=== PATIENT | male | born 1945 | race Caucasian/White ===

== ENCOUNTER → 2017-08-12 | Outpatient (CLI) | payer OTHER ==
[~2017-08-12] MED LIST: ZESTRIL5 MG PO
== END ==
LOC: EXRD 11:38
DX: J44.1 Chronic obstructive pulmonary disease with (acute) exacerbation (principal); R91.8 Other nonspecific abnormal finding of lung field; Z95.1 Presence of aortocoronary bypass graft
CPT/HCPCS: 71020

== ENCOUNTER 2020-12-24 06:32 | Inpatient (IN) | payer OTHER ==
[~2020-12-24] VITALS: Ht 170.2 cm; Wt 62.6 kg
[~2020-12-24 06:32] MED LIST changes: +AMBIEN10 MG PO; +AMBIEN5 MG PO; +BROVANA15 MCG/2 M INH; +CARDIZEM CD180 MG PO; +COLACE 100MG C100 MG PO; +COMBIVENT0.074 GM/I INH; +CRESTOR10 MG PO; +CYCLOBENZAPRINE10 MG PO; +DIGITEK125 MCG PO; +DURAGESIC1 EAC2 TD; +ELIQUIS5 MG PO; +FEOSOL325 MG PO; +FLEXERIL 10 MG10 MG PO; +FLOMAX 0.4 MG0.4 MG PO; +FLOMAX0.4 MG PO; +GLUCOPHAGE500 MG PO; +GLUCOSE4 GM PO; +GUAIFENESIN200 MG PO; +HYDROCODON-ACE1 EAC6 PO; +ISORDIL TAB 3030 MG PO; +K-DUR TAB 10 M10 MEQ PO; +LASIX20 MG PO; +LEVAQUIN750 MG PO; +LEVOFLOXACIN500 MG PO; +LISINOPRIL-HCT1 EAC1 PO; +LOW DOSE ASPIRI81 MG PO; +MARINOL10 MG PO; +MEDROL4 MG PO; +MELATONIN3 M3 PO; +NEURONTIN 300300 MG PO; +NICODERM CQ1 EAC1 TD; +NORCO 10-325 T1 EACH PO; +NOVOLOG100 UNIT/1 SC; +NYSTATIN100000 UNI PO; +OMNICEF 300 MG300 MG PO; +OXYCODONE HCL20 MG PO; +PERCOCET 10-321 EACH PO; +PLAVIX 75 MG TA75 MG PO; +PLAVIX75 MG PO; +PREDNISONE 10 M10 MG PO; +PREDNISONE 20 M20 MG PO; +PREDNISONE10 MG PO; +PULMICORT0.5 MG/2 M INH; +SPIRIVA RESPIMAT4 GM INH; +SYMBICORT 160-1 INHA INH; +THEO-DUR 300 M300 MG PO; +THEOPHYLLINE600 MG PO; +TRELEGY ELLIPT1 EACH INH; +VIBRAMYCIN100 MG PO; +VITAMIN D31000 UNI1 PO; +XANAX1 MG PO; +XYZAL5 MG PO; +ZITHROMAX500 MG PO
[2020-12-24 07:24] LABS: HEMOGLOBIN 12.9 gm/dl (14.0-17.5); RED BLOOD COUNT 4.29 M/UL (4.20-5.50); WHITE BLOOD COUNT 15.1 K/UL (4.5-11.0)
[2020-12-24 07:49] LABS: BUN/CREATININE RATIO 24 (0-10)
[2020-12-24] MEDS ORDERED: ALENDRONATE SOD70 MG PO (17:35)
[2020-12-24] MEDS ORDERED: CRESTOR 10 MG T10 MG GT (17:37)
[2020-12-24] MEDS ORDERED: CLOPIDOGREL75 MG PO (17:38)
[2020-12-25 04:57] LABS: HEMOGLOBIN 11.7 gm/dl (14.0-17.5); RED BLOOD COUNT 3.89 M/UL (4.20-5.50); WHITE BLOOD COUNT 13.4 K/UL (4.5-11.0)
[2020-12-25 05:10] LABS: BUN/CREATININE RATIO 26 (0-10)
[2020-12-26 05:56] LABS: HEMOGLOBIN 11.9 gm/dl (14.0-17.5); RED BLOOD COUNT 3.89 M/UL (4.20-5.50)
[2020-12-26 06:20] LABS: BUN/CREATININE RATIO 38 (0-10)
[2020-12-26 06:35] LABS: WHITE BLOOD COUNT 18.6 K/UL (4.5-11.0)
--- NOTE | 2020-12-26 14:05 | NUR ---
PATIENT BACK FROM OR AND RESTING COMFORTABLY.
--- NOTE | 2020-12-26 15:59 | NUR ---
PATIENT RESPONDS WHEN SPOKEN TO OPEN EYES AND ANSWER QUESTIONS APPROPRIATELY
--- NOTE | 2020-12-26 18:05 | NUR ---
SPOKEN WITH DR. REDD DOING HIS ROUND INFORMED PATIENT HAS BEEN SLEEP SINCE HE HAS BEEN ON THE FLOOR FROM SURGERY, INFORMED OF PATIENT HEART RATE UP AND THAT PACU NURSE STATED HIS HEART RATE WAS HIGH ALSO, ANESTHESIOLOGIST AWARE. PATIENT WILL MUMBLES BUT WILL NOT OPEN EYES. REPORTED TO DR. SINGH AND SEEN PATIENT AND WAS INSTRUCTED TO MONITOR PATIENT. PATIENT WILL ANSWER WHEN ASKED HIS NAME PROPERLY.
--- NOTE | 2020-12-26 18:33 | NUR ---
REPORTED TO DR. SINGH PATIENT EPISODE OF TACHYCARDIA. DR. REDD AND DR. SINGH SPOKEN OVER THE PHONE REGARDING PATIENT.
[2020-12-26 18:39] LABS: HEMOGLOBIN 9.9 gm/dl (14.0-17.5)
--- NOTE | 2020-12-26 19:03 | NUR ---
RECEIVED CALL FROM DR. SINGH TO NOTIFY DR. INIGUEZ R/T PATIETNT HX OF AFIB, TACHYCARDIC EPISODE FROM 129-140'S. REQUEST TO ASSESS PATIENT IF BETABLOCKERS NEEDED AND REQUEST FOR ANY SUGGESTIONS. REPORTED TO DR. INIGUEZ OF THE ABOVE AND RECEIVED ORDER. INFORMED THE EVENING NURSE OF THE ABOVE WELL.
--- NOTE | 2020-12-26 20:21 | NUR ---
UPON ARRIVING FOR MY SHIFT, RECEIVED REPORT FROM ROMAN GREEN. SHE STATED THE PT HAD BEEN LETHARGIC SINCE RETURNING FROM SURGERY AT APPROXIMATELY 1400 TODAY. PT COLORING WAS ASHEN, BILATERAL UPPER AND LOWER EXTREMITIES WERE ICE COLD. HR IN THE 120S-140S. I CAME IN THE ON THE END OF THE EXCHANGE BETWEEN AND ROMAN VASQUEZ WITH THE PT. BUT I PROCEEDED WITH THE TRANSFER. DR. BRUNO WAS CONTACTED HE ORDERED AN EKG. ONCE THE EKG WAS DONE I HAD PHILOSOPHY SPECIALIST TEXT A PIC OF THE EKG TO DR. BRUNO. HE CALLED BACK AND ORDERED A NEW CARDIO CONSULT TO BE PLACED FOR THE AM AND CARDIAC SCREENS Q6HRS X3. I ALSO CONTACTED DR. SINGH THE TRANSFERRING PHYSICIAN DUE TO THE FACT THE PT HAD TRANSFER ORDERS THAT ONLY I COULD SEE. THE AND THE PHILOSOPHY SPECIALIST COULD NOT SEE THE TRANSFER ORDERS. SO I CALLED DR. SINGH BACK JUST TO VERIFY THE ORDERS. I HAD TO PLACE NEW ORDERS IN [facility] DUE TO THE FACT THE ONLY WAY I COULD SEE THE ORDERS OF WHAT UNIT THE PT WAS GOING TO WAS TO ACCEPT THE TRANSFER ORDERS. DR. SINGH CONFIRMED THE TRANSFER AND I THEN TRANSFERRED THE PT TO [facility] ROOM 6112. PT STABLE AT TIME OF TRANSFER
[2020-12-27 02:11] LABS: HEMOGLOBIN 9.4 gm/dl (14.0-17.5); RED BLOOD COUNT 3.03 M/UL (4.20-5.50); WHITE BLOOD COUNT 23.4 K/UL (4.5-11.0)
[2020-12-27 02:29] LABS: BUN/CREATININE RATIO 30 (0-10)
--- NOTE | 2020-12-27 15:33 | NUR ---
PATIENT DRESSING TO LEFT HIP SATURATED IN BLOOD. WOUND DRESSING CLEANED AND CHANGED. PATIENT TOLERATED WELL. /REBECCA GOMEZ AWARE AND HAS SEEN THE OLD DRESSING. JASON INSTRUCT TO WAIT ON CARDIOLOGY CONSULT BEFORE RX FOR ANTICOAGULANT
[2020-12-28 03:19] LABS: BUN/CREATININE RATIO 53 (0-10)
[2020-12-28 04:07] LABS: RED BLOOD COUNT 1.9 M/UL (4.20-5.50); WHITE BLOOD COUNT 13.3 K/UL (4.5-11.0)
[2020-12-28 04:08] LABS: HEMOGLOBIN 6.3 gm/dl (14.0-17.5)
[2020-12-28 17:51] LABS: HEMOGLOBIN 8.7 gm/dl (14.0-17.5)
[2020-12-29 02:30] LABS: HEMOGLOBIN 8.5 gm/dl (14.0-17.5)
[2020-12-29 02:41] LABS: RED BLOOD COUNT 2.98 M/UL (4.20-5.50); WHITE BLOOD COUNT 9.7 K/UL (4.5-11.0)
[2020-12-29 02:57] LABS: BUN/CREATININE RATIO 34 (0-10)
[2020-12-30 02:53] LABS: RED BLOOD COUNT 3.14 M/UL (4.20-5.50); WHITE BLOOD COUNT 9.7 K/UL (4.5-11.0)
[2020-12-30 03:13] LABS: BUN/CREATININE RATIO 21 (0-10)
[2020-12-31 11:37] LABS: HEMOGLOBIN 9.8 gm/dl (14.0-17.5); RED BLOOD COUNT 3.42 M/UL (4.20-5.50)
[2020-12-31 11:42] LABS: WHITE BLOOD COUNT 17.1 K/UL (4.5-11.0)
[2021-01-01 04:45] LABS: HEMOGLOBIN 9.2 gm/dl (14.0-17.5); RED BLOOD COUNT 3.18 M/UL (4.20-5.50)
[2021-01-01 04:48] LABS: WHITE BLOOD COUNT 11.4 K/UL (4.5-11.0)
[2021-01-01 04:50] LABS: BUN/CREATININE RATIO 17 (0-10)
[2021-01-02 02:36] LABS: HEMOGLOBIN 9.8 gm/dl (14.0-17.5); RED BLOOD COUNT 3.38 M/UL (4.20-5.50); WHITE BLOOD COUNT 12.8 K/UL (4.5-11.0)
[2021-01-02 03:15] LABS: BUN/CREATININE RATIO 18 (0-10)
[2021-01-02] MEDS ORDERED: ELIQUIS5 MG PO (11:39)
[2021-01-02] MEDS ORDERED: HYDROCODON-ACE1 EAC2 PO (11:41)
[2021-01-02] MEDS ORDERED: PREDNISONE 10 M10 MG PO (12:28)
[2021-01-02] MEDS ORDERED: LOPRESSOR 25 MG25 MG PO (13:51)
[2021-01-02] MEDS ORDERED: HYDROCODON-ACE1 EAC6 PO (17:16)
[2021-01-02] MEDS ORDERED: ALPRAZOLAM1 MG PO (21:25)
[2021-01-03] MEDS ORDERED: OXYCODONE HCL20 MG PO (17:18)
[2021-01-13] MEDS ORDERED: LOVENOX40 MG/0.4 SQ (17:22)
== END 2021-01-02 17:41 | disposition home or self-care (01) | DRG 521 ==
LOC: ER1 06:32 → CDU 10:29 → PROG CARE 10:29 → M/S 10:29 → PROG CARE 12:12 → M/S 12-25 12:22 → PROG CARE 12-26 20:26 → MED SURG 4 12-31 18:50
PROVIDERS: Emergency Medicine; Internal Medicine; Internal Medicine Pulmonary Disease; Nurse Practitioner Family; Orthopaedic Surgery; Physician Assistant; Physician Assistant Medical; ADMIT Hospitalist
PROC: 0SRB02A Replacement of Left Hip Joint with Metal on Polyethylene Synthetic Substitute, Uncemented, Open Approach (ICD-10-PCS; principal; 2020-12-26 08:30)
PROC: 0QP904Z Removal of Internal Fixation Device from Left Femoral Shaft, Open Approach (ICD-10-PCS; 2020-12-26 08:30)
PROC: 30233N1 Transfusion of Nonautologous Red Blood Cells into Peripheral Vein, Percutaneous Approach (ICD-10-PCS; 2020-12-28)
DX: S72.002A Fracture of unspecified part of neck of left femur, initial encounter for closed fracture (principal); G93.41 Metabolic encephalopathy; S22.32XA Fracture of one rib, left side, initial encounter for closed fracture; M87.9 Osteonecrosis, unspecified; J44.1 Chronic obstructive pulmonary disease with (acute) exacerbation; J96.11 Chronic respiratory failure with hypoxia; J96.12 Chronic respiratory failure with hypercapnia; I50.32 Chronic diastolic (congestive) heart failure; I48.0 Paroxysmal atrial fibrillation; E11.9 Type 2 diabetes mellitus without complications; I25.10 Atherosclerotic heart disease of native coronary artery without angina pectoris; Z20.822 Contact with and (suspected) exposure to COVID-19; D72.829 Elevated white blood cell count, unspecified; I11.0 Hypertensive heart disease with heart failure; E55.9 Vitamin D deficiency, unspecified; E78.5 Hyperlipidemia, unspecified; F17.210 Nicotine dependence, cigarettes, uncomplicated; G47.00 Insomnia, unspecified; K59.00 Constipation, unspecified; F41.9 Anxiety disorder, unspecified; G62.9 Polyneuropathy, unspecified; M62.838 Other muscle spasm; M81.0 Age-related osteoporosis without current pathological fracture; Z95.1 Presence of aortocoronary bypass graft; Z79.01 Long term (current) use of anticoagulants; Z79.82 Long term (current) use of aspirin; Z79.899 Other long term (current) drug therapy; Z99.81 Dependence on supplemental oxygen; Z83.3 Family history of diabetes mellitus; Z88.0 Allergy status to penicillin; Z88.8 Allergy status to other drugs, medicaments and biological substances; Z91.040 Latex allergy status; Z95.5 Presence of coronary angioplasty implant and graft; G89.4 Chronic pain syndrome
CPT/HCPCS: ECHO; 36415; 36430; 36600; 70450; 71045; 72125; 72170; 73502; 76000; 80048; 80053; 82550; 82553; 82803; 82962; 83540; 83550; 83605; 83690; 83735; 83874; 83880; 84484; 85014; 85018; 85025; 85027; 85610; 85730; 86850; 86900; 86901; 86920; 90471; 90715; 93005; 93306; 94640; 94664; 94760; 96365; 96372; 96375; 96376; 97116-GP-CQ; 97162; 97166; 97530-GP-CQ; 99285; C1776; C9113; J0171; J0690; J1100; J1170; J1644; J1956; J2704; J2795; J2920; J2930; J3010; J3370; J7030; J7050; J7120; P9016; U0002

== ENCOUNTER 2021-01-23 09:29 | Inpatient (IN) | payer OTHER ==
[~2021-01-23] VITALS: Ht 170.2 cm; Wt 62.6 kg
[~2021-01-23 09:29] MED LIST changes: +ALENDRONATE SOD70 MG PO; +ALPRAZOLAM1 MG PO; +CLOPIDOGREL75 MG PO; +CRESTOR 10 MG T10 MG GT; +HYDROCODON-ACE1 EAC2 PO; +LOPRESSOR 25 MG25 MG PO; +LOVENOX40 MG/0.4 SQ
[2021-01-23] MEDS ORDERED: OMEPRAZOLE20 MG PO (11:02)
[2021-01-23 11:40] LABS: HEMOGLOBIN 9.5 gm/dl (14.0-17.5); RED BLOOD COUNT 3.14 M/UL (4.20-5.50)
[2021-01-23 12:09] LABS: BUN/CREATININE RATIO 26 (0-10)
[2021-01-23] MEDS ORDERED: PREDNISONE10 MG PO (17:16)
[2021-01-23] MEDS ORDERED: PLAVIX75 MG PO (17:21)
[2021-01-23] MEDS ORDERED: LASIX20 MG PO (17:23)
[2021-01-23] MEDS ORDERED: IPRAT-ALBUT 0.5-3 ML INH (20:53)
[2021-01-23] MEDS ORDERED: NEURONTIN800 MG PO (21:25)
[2021-01-24 02:24] LABS: HEMOGLOBIN 9.2 gm/dl (14.0-17.5); RED BLOOD COUNT 3.1 M/UL (4.20-5.50); WHITE BLOOD COUNT 6.7 K/UL (4.5-11.0)
[2021-01-24 02:42] LABS: BUN/CREATININE RATIO 33 (0-10)
[2021-01-25 03:55] LABS: HEMOGLOBIN 8.9 gm/dl (14.0-17.5); RED BLOOD COUNT 2.93 M/UL (4.20-5.50); WHITE BLOOD COUNT 13.2 K/UL (4.5-11.0)
[2021-01-25 04:18] LABS: BUN/CREATININE RATIO 30 (0-10)
[2021-01-26 06:36] LABS: HEMOGLOBIN 8.9 gm/dl (14.0-17.5); RED BLOOD COUNT 2.93 M/UL (4.20-5.50); WHITE BLOOD COUNT 11.3 K/UL (4.5-11.0)
[2021-01-26 07:09] LABS: BUN/CREATININE RATIO 34 (0-10)
[2021-01-26] MEDS ORDERED: SPIRIVA HANDIH18 MCG INH (11:13)
[2021-01-26] MEDS ORDERED: XARELTO20 MG PO (11:13)
[2021-01-26] MEDS ORDERED: DOXYCYCLINE HY100 M2 PO (11:13)
[2021-01-26] MEDS ORDERED: SYMBICORT 16010.2 GM INH (11:13)
[2021-01-26] MEDS ORDERED: DALIRESP 500500 MCG PO (11:13)
[2021-01-26] MEDS ORDERED: XARELTO15 MG PO (11:13)
[2021-01-26] MEDS ORDERED: HUMALOG 10100 UNITS/ SC ×2 (11:13)
== END 2021-01-26 16:46 | disposition home or self-care (01) | DRG 299 ==
LOC: ER1 09:29 → CDU 15:19 → PROG CARE 15:19 → MED SURG 4 01-25 14:23
PROVIDERS: Emergency Medicine; Internal Medicine; Physician Assistant; ADMIT Internal Medicine
PROC: 5A09457 Assistance with Respiratory Ventilation, 24-96 Consecutive Hours, Continuous Positive Airway Pressure (ICD-10-PCS; principal; 2021-01-23)
DX: I82.412 Acute embolism and thrombosis of left femoral vein (principal); J96.22 Acute and chronic respiratory failure with hypercapnia; J96.21 Acute and chronic respiratory failure with hypoxia; J44.1 Chronic obstructive pulmonary disease with (acute) exacerbation; S32.019A Unspecified fracture of first lumbar vertebra, initial encounter for closed fracture; I50.32 Chronic diastolic (congestive) heart failure; E11.9 Type 2 diabetes mellitus without complications; I10 Essential (primary) hypertension; F17.210 Nicotine dependence, cigarettes, uncomplicated; I48.0 Paroxysmal atrial fibrillation; I25.10 Atherosclerotic heart disease of native coronary artery without angina pectoris; E78.5 Hyperlipidemia, unspecified; Z96.642 Presence of left artificial hip joint; Z66 Do not resuscitate; I11.0 Hypertensive heart disease with heart failure; D64.9 Anemia, unspecified; Z88.0 Allergy status to penicillin; Z99.81 Dependence on supplemental oxygen; Z95.1 Presence of aortocoronary bypass graft; Z98.890 Other specified postprocedural states; Z91.14 Patient's other noncompliance with medication regimen; Z79.4 Long term (current) use of insulin
CPT/HCPCS: 0240U; 36415; 36600; 71045; 73502; 80048; 80053; 82550; 82553; 82803; 82962; 83735; 83874; 83880; 84484; 85025; 85027; 85379; 93971; 94640; 94660; 94664; 94760; 96365; 96372; 96375; 97110; 97161; 97166; 97530; 99285; J1650; J1956; J2930; Q9967

== ENCOUNTER 2021-04-09 03:10 | Inpatient (IN) | payer MEDICARE, OTHER ==
[~2021-04-09] VITALS: Ht 170.2 cm; Wt 59.4 kg
[~2021-04-09 03:10] MED LIST changes: +DALIRESP 500500 MCG PO; +DOXYCYCLINE HY100 M2 PO; +HUMALOG 10100 UNITS/ SC; +IPRAT-ALBUT 0.5-3 ML INH; +NEURONTIN800 MG PO; +OMEPRAZOLE20 MG PO; +SPIRIVA HANDIH18 MCG INH; +SYMBICORT 16010.2 GM INH; +XARELTO15 MG PO; +XARELTO20 MG PO
[2021-04-09 04:01] LABS: HEMOGLOBIN 12.5 gm/dl (14.0-17.5); RED BLOOD COUNT 4.08 M/UL (4.20-5.50); WHITE BLOOD COUNT 12.8 K/UL (4.5-11.0)
[2021-04-09 04:49] LABS: BUN/CREATININE RATIO 34 (0-10)
[2021-04-10 04:42] LABS: RED BLOOD COUNT 4.09 M/UL (4.20-5.50); WHITE BLOOD COUNT 11.4 K/UL (4.5-11.0)
[2021-04-10 04:47] LABS: BUN/CREATININE RATIO 45 (0-10)
[2021-04-10 15:19] LABS: BUN/CREATININE RATIO 59 (0-10)
[2021-04-12 16:15] LABS: ORGANISM ID Not indicated. (.); SPECIMEN SOURCE Urine (.); STREPTOCOCCUS PNEUMONIAE AG Negative (Negative)
== END 2021-04-10 19:04 | disposition home or self-care (01) | DRG 189 ==
LOC: ER1 03:10 → CDU 09:13 → PROG CARE 13:00
PROVIDERS: Internal Medicine Pulmonary Disease; Student in an Organized Health Care Education/Training Program; ADMIT Internal Medicine Infectious Disease
DX: J96.21 Acute and chronic respiratory failure with hypoxia (principal); G92 Toxic encephalopathy; M48.56XA Collapsed vertebra, not elsewhere classified, lumbar region, initial encounter for fracture; J44.1 Chronic obstructive pulmonary disease with (acute) exacerbation; I50.32 Chronic diastolic (congestive) heart failure; E87.5 Hyperkalemia; Z20.822 Contact with and (suspected) exposure to COVID-19; I48.0 Paroxysmal atrial fibrillation; Z66 Do not resuscitate; I11.0 Hypertensive heart disease with heart failure; J40 Bronchitis, not specified as acute or chronic; E11.9 Type 2 diabetes mellitus without complications; I25.10 Atherosclerotic heart disease of native coronary artery without angina pectoris; E78.5 Hyperlipidemia, unspecified; Z96.642 Presence of left artificial hip joint; Z88.0 Allergy status to penicillin; Z95.1 Presence of aortocoronary bypass graft; Z91.040 Latex allergy status
CPT/HCPCS: 0240U; 36415; 36600; 70450; 71045; 80048; 80053; 81001; 82550; 82553; 82803; 82962; 83605; 83690; 83735; 83874; 83880; 84100; 84484; 85025; 85610; 85730; 86140; 87278; 87899; 93005; 94640; 94660; 94664; 94760; 96374; 99285; J1956; J2920; J2930; J7050; Q9967

== ENCOUNTER 2021-04-11 13:32 | Inpatient (IN) | payer MEDICARE ==
[~2021-04-11] VITALS: Ht 170.2 cm; Wt 56.2 kg
[2021-04-11 13:53] LABS: RED BLOOD COUNT 4.02 M/UL (4.20-5.50); WHITE BLOOD COUNT 12.7 K/UL (4.5-11.0)
[2021-04-11 14:18] LABS: BUN/CREATININE RATIO 71 (0-10)
--- NOTE | 2021-04-11 21:50 | NUR ---
[id number]. NOTIFIED DR LINDSAY. ADMINISTERED 5 UNITS ORDERED. NO FURTHER ORDERS. WILL CONTINUE TO MONITOR.
[2021-04-12 06:35] LABS: HEMOGLOBIN 12.8 gm/dl (14.0-17.5); RED BLOOD COUNT 4.35 M/UL (4.20-5.50); WHITE BLOOD COUNT 11.9 K/UL (4.5-11.0)
[2021-04-12 07:11] LABS: BUN/CREATININE RATIO 69 (0-10)
[2021-04-13 05:08] LABS: HEMOGLOBIN 12.6 gm/dl (14.0-17.5); RED BLOOD COUNT 4.32 M/UL (4.20-5.50); WHITE BLOOD COUNT 10.6 K/UL (4.5-11.0)
[2021-04-13 05:33] LABS: BUN/CREATININE RATIO 40 (0-10)
--- NOTE | 2021-04-13 17:51 | NUR ---
PATIENT REFUSED BED ALARM. HE SAID THAT HE WOULD CALL OUT FOR HELP WHEN HE NEEDED IT.
[2021-04-17] MEDS ORDERED: ALPRAZOLAM1 MG PO (16:33)
[2021-04-17] MEDS ORDERED: HYDROCODON-ACE1 EAC6 PO (16:33)
[2021-04-17] MEDS ORDERED: OXYCODONE HCL20 MG PO (16:33)
--- NOTE | 2021-04-21 02:35 | NUR ---
REPORT GIVEN TO NIVIA VASQUEZ
--- NOTE | 2021-04-21 16:25 | NUR ---
NOTIFIED DR. WILKES OF PATIENT'S COMPLAINTS OF CHEST PAIN.
[2021-04-22 03:31] LABS: BUN/CREATININE RATIO 25 (0-10)
[2021-05-01 06:26] LABS: BUN/CREATININE RATIO 31 (0-10)
[2021-05-03] MEDS ORDERED: FUROSEMIDE20 MG PO (09:44)
== END 2021-05-03 15:30 | DRG 189 ==
LOC: ER1 13:32 → CDU 16:57 → MED SURG 4 16:57 → M/S 18:47 → MED SURG 4 04-12 22:41
PROVIDERS: Emergency Medicine; Internal Medicine; Physician Assistant Medical; ADMIT Internal Medicine
DX: J96.21 Acute and chronic respiratory failure with hypoxia (principal); R65.11 Systemic inflammatory response syndrome (SIRS) of non-infectious origin with acute organ dysfunction; J44.1 Chronic obstructive pulmonary disease with (acute) exacerbation; I50.32 Chronic diastolic (congestive) heart failure; G89.4 Chronic pain syndrome; E11.9 Type 2 diabetes mellitus without complications; Z20.822 Contact with and (suspected) exposure to COVID-19; I11.0 Hypertensive heart disease with heart failure; J96.22 Acute and chronic respiratory failure with hypercapnia; Z96.642 Presence of left artificial hip joint; F41.9 Anxiety disorder, unspecified; R00.0 Tachycardia, unspecified; I48.0 Paroxysmal atrial fibrillation; G47.00 Insomnia, unspecified; F32.9 Major depressive disorder, single episode, unspecified; I25.10 Atherosclerotic heart disease of native coronary artery without angina pectoris; Z98.61 Coronary angioplasty status; Z95.1 Presence of aortocoronary bypass graft; Z66 Do not resuscitate; F17.210 Nicotine dependence, cigarettes, uncomplicated; Z79.899 Other long term (current) drug therapy; Z79.4 Long term (current) use of insulin; Z79.01 Long term (current) use of anticoagulants; Z79.82 Long term (current) use of aspirin
CPT/HCPCS: 0240U; 36415; 36600; 71045; 80048; 80053; 81001; 82550; 82553; 82803; 82962; 83605; 83690; 83735; 83880; 84484; 85025; 85027; 85379; 87040; 93005; 94640; 94660; 94664; 94760; 97110; 97116; 97116-GP-CQ; 97161; 97166; 97530; 99285; J2060; J2270; J2920; J2930; U0002

== ENCOUNTER 2021-06-03 19:57 | Inpatient (IN) | payer MEDICARE ==
[~2021-06-03] VITALS: Ht 170.2 cm; Wt 65.4 kg
[~2021-06-03 19:57] MED LIST changes: +FUROSEMIDE20 MG PO; +NEURONTIN400 MG PO; -NEURONTIN800 MG PO
[2021-06-03 20:35] LABS: HEMOGLOBIN 12.4 gm/dl (14.0-17.5); RED BLOOD COUNT 4.3 M/UL (4.20-5.50); WHITE BLOOD COUNT 14.4 K/UL (4.5-11.0)
[2021-06-03 21:08] LABS: BUN/CREATININE RATIO 21 (0-10)
[2021-06-04] MEDS ORDERED: TRESIBA 200 UNIT/ML SC (10:54)
[2021-06-04] MEDS ORDERED: HYDROCODON-ACE1 EAC6 PO (12:38)
[2021-06-04] MEDS ORDERED: ALPRAZOLAM1 MG PO (12:40)
[2021-06-04] MEDS ORDERED: OXYCODONE HCL20 MG PO (12:40)
[2021-06-04] MEDS ORDERED: POTASSIUM CHLO10 MEQ PO (12:45)
[2021-06-04] MEDS ORDERED: ZOLPIDEM TARTRA10 MG PO (12:47)
[2021-06-04] MEDS ORDERED: OMEPRAZOLE20 M1 PO (12:49)
[2021-06-04] MEDS ORDERED: PREDNISONE10 MG PO (12:49)
[2021-06-04] MEDS ORDERED: DOCUSATE SODIU100 MG PO (12:50)
[2021-06-05 03:44] LABS: HEMOGLOBIN 11.1 gm/dl (14.0-17.5); RED BLOOD COUNT 3.59 M/UL (4.20-5.50); WHITE BLOOD COUNT 16.1 K/UL (4.5-11.0)
[2021-06-05 04:03] LABS: BUN/CREATININE RATIO 37 (0-10)
[2021-06-06 07:36] LABS: BUN/CREATININE RATIO 35 (0-10)
[2021-06-06] MEDS ORDERED: BUDESONIDE0.5 MG/2 M NEB (14:05)
[2021-06-06] MEDS ORDERED: DOXYCYCLINE HY100 MG PO (14:05)
[2021-06-06] MEDS ORDERED: PREDNISONE 10 M10 MG PO (14:05)
[2021-06-06] MEDS ORDERED: HUMIBID LA TAB600 MG PO (14:05)
== END 2021-06-06 17:35 | DRG 871 ==
LOC: ER1 19:57 → CDU 21:15 → MED SURG 4 21:15 → CCU 21:15 → MED SURG 4 06-04 21:07
PROVIDERS: Internal Medicine; Internal Medicine Pulmonary Disease; Preventive Medicine Occupational Medicine; ADMIT Internal Medicine
DX: A41.9 Sepsis, unspecified organism (principal); J96.21 Acute and chronic respiratory failure with hypoxia; Z51.5 Encounter for palliative care; Z20.822 Contact with and (suspected) exposure to COVID-19; J96.22 Acute and chronic respiratory failure with hypercapnia; J18.9 Pneumonia, unspecified organism; G93.41 Metabolic encephalopathy; E43 Unspecified severe protein-calorie malnutrition; J44.1 Chronic obstructive pulmonary disease with (acute) exacerbation; J44.0 Chronic obstructive pulmonary disease with (acute) lower respiratory infection; I50.32 Chronic diastolic (congestive) heart failure; F17.210 Nicotine dependence, cigarettes, uncomplicated; E78.5 Hyperlipidemia, unspecified; G89.4 Chronic pain syndrome; I11.0 Hypertensive heart disease with heart failure; N40.0 Benign prostatic hyperplasia without lower urinary tract symptoms; I25.10 Atherosclerotic heart disease of native coronary artery without angina pectoris; D63.8 Anemia in other chronic diseases classified elsewhere; E11.9 Type 2 diabetes mellitus without complications; Z79.01 Long term (current) use of anticoagulants; I48.0 Paroxysmal atrial fibrillation; Z95.1 Presence of aortocoronary bypass graft; Z79.82 Long term (current) use of aspirin; Z79.899 Other long term (current) drug therapy; Z91.14 Patient's other noncompliance with medication regimen; Z88.0 Allergy status to penicillin; Z88.8 Allergy status to other drugs, medicaments and biological substances; Z91.040 Latex allergy status; Z68.22 Body mass index [BMI] 22.0-22.9, adult
CPT/HCPCS: 36415; 36600; 71045; 80048; 80053; 80307; 81001; 82140; 82550; 82553; 82803; 82962; 83036; 83605; 83690; 83735; 83874; 83880; 84100; 84439; 84443; 84484; 85025; 85652; 86140; 87040; 87086; 93005; 94640; 94660; 94664; 94760; 99285; C9113; G0480; J0696; J2185; J2920; J2930; J7030; U0002

== ENCOUNTER 2021-06-08 20:40 | Emergency (ER) | payer MEDICARE ==
[~2021-06-08 20:40] MED LIST changes: +BUDESONIDE0.5 MG/2 M NEB; +DOCUSATE SODIU100 MG PO; +DOXYCYCLINE HY100 MG PO; +HUMIBID LA TAB600 MG PO; +OMEPRAZOLE20 M1 PO; +POTASSIUM CHLO10 MEQ PO; +TRESIBA 200 UNIT/ML SC; +ZOLPIDEM TARTRA10 MG PO
[2021-06-08 21:33] LABS: HEMOGLOBIN 12.7 gm/dl (14.0-17.5); RED BLOOD COUNT 4.27 M/UL (4.20-5.50); WHITE BLOOD COUNT 9.5 K/UL (4.5-11.0)
[2021-06-08 21:52] LABS: BUN/CREATININE RATIO 28 (0-10)
[2021-06-09] MEDS ORDERED: VIBRAMYCIN 100100 MG PO (00:43)
[2021-06-09] MEDS ORDERED: MEDROL DOSEPAK 24 MG PO (00:43)
== END 2021-06-09 01:58 | disposition home or self-care (01) ==
LOC: ER1 20:40
PROVIDERS: Physician Assistant
DX: J44.1 Chronic obstructive pulmonary disease with (acute) exacerbation (principal); E11.9 Type 2 diabetes mellitus without complications; I10 Essential (primary) hypertension; F17.210 Nicotine dependence, cigarettes, uncomplicated; Z20.822 Contact with and (suspected) exposure to COVID-19
CPT/HCPCS: 0240U; 71045; 80053; 82550; 82553; 82803; 83874; 83880; 84484; 85025; 93005; 94760; 99285

== ENCOUNTER 2021-06-12 20:24 | Emergency (ER) | payer MEDICARE ==
[~2021-06-12] VITALS: Ht 170.2 cm; Wt 59.0 kg
[~2021-06-12 20:24] MED LIST changes: +MEDROL DOSEPAK 24 MG PO; +VIBRAMYCIN 100100 MG PO
[2021-06-12 22:02] LABS: HEMOGLOBIN 12.8 gm/dl (14.0-17.5); RED BLOOD COUNT 4.22 M/UL (4.20-5.50); WHITE BLOOD COUNT 13.2 K/UL (4.5-11.0)
[2021-06-12 22:16] LABS: BUN/CREATININE RATIO 20 (0-10)
[2021-06-13] MEDS ORDERED: VENTOLIN HFA 66.7 GM INH ×2 (10:46→14:25)
[2021-06-13] MEDS ORDERED: FOSAMAX70 MG PO (11:16)
[2021-06-13] MEDS ORDERED: LOPRESSOR 25 MG25 MG PO ×2 (11:16→14:25)
[2021-06-13] MEDS ORDERED: NITROGLYCERIN0.4 MG SL ×2 (12:44→14:25)
[2021-06-13] MEDS ORDERED: LASIX20 MG PO ×2 (12:46→14:25)
[2021-06-13] MEDS ORDERED: CRESTOR 10 MG T10 MG PO ×2 (12:48→14:25)
[2021-06-13] MEDS ORDERED: ELIQUIS5 MG PO ×2 (12:48→14:25)
[2021-06-13] MEDS ORDERED: GLUCOPHAGE 500500 MG PO ×2 (12:50→14:25)
[2021-06-13] MEDS ORDERED: LOW DOSE ASPIRI81 MG PO (14:25)
[2021-06-13] MEDS ORDERED: OMEPRAZOLE20 M1 PO (14:25)
[2021-06-13] MEDS ORDERED: DOCUSATE SODIU100 MG PO (14:25)
[2021-06-13] MEDS ORDERED: IPRAT-ALBUT 0.5-3 ML INH ×2 (14:25→18:42)
[2021-06-13] MEDS ORDERED: TRESIBA 200 UNIT/ML SC (14:25)
[2021-06-13] MEDS ORDERED: FLOMAX 0.4 MG0.4 MG PO (14:25)
== END 2021-06-13 17:42 | disposition home or self-care (01) ==
LOC: ER1 20:24 → CDU 23:19 → ER1 23:19 → CDU 23:19 → ER1 06-13 17:42
PROVIDERS: Physician Assistant
DX: R07.89 Other chest pain (principal); J44.9 Chronic obstructive pulmonary disease, unspecified; Z95.1 Presence of aortocoronary bypass graft; Z95.5 Presence of coronary angioplasty implant and graft; J96.11 Chronic respiratory failure with hypoxia; E78.5 Hyperlipidemia, unspecified; E44.0 Moderate protein-calorie malnutrition; I48.0 Paroxysmal atrial fibrillation; E11.9 Type 2 diabetes mellitus without complications; Z66 Do not resuscitate; F41.9 Anxiety disorder, unspecified; I11.0 Hypertensive heart disease with heart failure; Z88.0 Allergy status to penicillin; F17.210 Nicotine dependence, cigarettes, uncomplicated; I25.10 Atherosclerotic heart disease of native coronary artery without angina pectoris; I50.33 Acute on chronic diastolic (congestive) heart failure; Z20.822 Contact with and (suspected) exposure to COVID-19; R94.31 Abnormal electrocardiogram [ECG] [EKG]; I25.2 Old myocardial infarction
CPT/HCPCS: 71045; 80053; 82550; 82553; 82962; 83874; 83880; 84484; 85025; 93005; 94640; 94664; 99285; U0002

== ENCOUNTER 2021-06-21 10:09 | Emergency (ER) | payer MEDICARE ==
[~2021-06-21 10:09] MED LIST changes: +CRESTOR 10 MG T10 MG PO; +FOSAMAX70 MG PO; +GLUCOPHAGE 500500 MG PO; +NITROGLYCERIN0.4 MG SL; +VENTOLIN HFA 66.7 GM INH
[2021-06-21 10:52] LABS: HEMOGLOBIN 12.5 gm/dl (14.0-17.5); RED BLOOD COUNT 4.2 M/UL (4.20-5.50)
[2021-06-21 11:50] LABS: BUN/CREATININE RATIO 28 (0-10)
== END 2021-06-21 15:45 | disposition home or self-care (01) ==
LOC: ER1 10:09
PROVIDERS: Emergency Medicine
DX: J44.1 Chronic obstructive pulmonary disease with (acute) exacerbation (principal); R06.89 Other abnormalities of breathing; Z20.822 Contact with and (suspected) exposure to COVID-19
CPT/HCPCS: 0240U; 36600; 71045; 80053; 82550; 82553; 82803; 83874; 83880; 84484; 85025; 93005; 94664; 99285

== ENCOUNTER 2021-07-02 20:08 | Emergency (ER) | payer MEDICARE ==
[2021-07-02 20:42] LABS: HEMOGLOBIN 12.4 gm/dl (14.0-17.5); RED BLOOD COUNT 4.27 M/UL (4.20-5.50); WHITE BLOOD COUNT 11.8 K/UL (4.5-11.0)
[2021-07-02 21:11] LABS: BUN/CREATININE RATIO 22 (0-10)
[2021-07-03] MEDS ORDERED: VIBRAMYCIN 100100 MG PO (00:37)
[2021-07-03] MEDS ORDERED: PREDNISONE50 MG PO (00:37)
== END 2021-07-03 00:51 | disposition home or self-care (01) ==
LOC: ER1 20:08
PROVIDERS: Emergency Medicine
DX: J44.1 Chronic obstructive pulmonary disease with (acute) exacerbation (principal); I25.10 Atherosclerotic heart disease of native coronary artery without angina pectoris; E11.9 Type 2 diabetes mellitus without complications; Z20.822 Contact with and (suspected) exposure to COVID-19; Z95.1 Presence of aortocoronary bypass graft; F17.210 Nicotine dependence, cigarettes, uncomplicated; Z88.0 Allergy status to penicillin; Z88.1 Allergy status to other antibiotic agents
CPT/HCPCS: 36600; 71045; 80053; 81001; 82550; 82553; 82803; 83605; 83690; 83735; 83874; 83880; 84100; 84439; 84443; 84484; 85025; 85379; 85610; 85730; 87040; 93005; 94664; 96374; 96375; 99285; J0696; J2930; U0002

== ENCOUNTER 2021-07-06 15:45 | Emergency (ER) | payer MEDICARE ==
[~2021-07-06 15:45] MED LIST changes: +PREDNISONE50 MG PO
[2021-07-06 16:46] LABS: HEMOGLOBIN 13.3 gm/dl (14.0-17.5); RED BLOOD COUNT 4.39 M/UL (4.20-5.50); WHITE BLOOD COUNT 8.7 K/UL (4.5-11.0)
[2021-07-06 17:19] LABS: BUN/CREATININE RATIO 21 (0-10)
[2021-07-06] MEDS ORDERED: ALBUTEROL2.5 MG/3 M INH (22:10)
[2021-07-06] MEDS ORDERED: PREDNISONE 50 M50 MG PO (22:10)
== END 2021-07-06 23:30 | disposition home or self-care (01) ==
LOC: ER1 15:45
PROVIDERS: Nurse Practitioner
DX: J44.1 Chronic obstructive pulmonary disease with (acute) exacerbation (principal); I10 Essential (primary) hypertension; E11.9 Type 2 diabetes mellitus without complications; F17.210 Nicotine dependence, cigarettes, uncomplicated; Z95.1 Presence of aortocoronary bypass graft
CPT/HCPCS: 71045; 80053; 82550; 82553; 82800; 83735; 83880; 84484; 85025; 87040; 94640; 96374; 99285; J2930

== ENCOUNTER 2021-07-23 19:42 | Emergency (ER) | payer MEDICARE ==
[~2021-07-23 19:42] MED LIST changes: +ALBUTEROL2.5 MG/3 M INH; -NEURONTIN400 MG PO; +NEURONTIN800 MG PO; +PREDNISONE 50 M50 MG PO
[2021-07-23 22:14] LABS: HEMOGLOBIN 11.2 gm/dl (14.0-17.5); RED BLOOD COUNT 3.8 M/UL (4.20-5.50); WHITE BLOOD COUNT 9.3 K/UL (4.5-11.0)
[2021-07-23 22:53] LABS: BUN/CREATININE RATIO 19 (0-10)
[2021-07-24] MEDS ORDERED: PREDNISONE 10 M10 MG PO (01:49)
== END 2021-07-24 04:52 | disposition home or self-care (01) ==
LOC: ER1 19:42
PROVIDERS: Physician Assistant
DX: J44.9 Chronic obstructive pulmonary disease, unspecified (principal); E11.9 Type 2 diabetes mellitus without complications; I48.91 Unspecified atrial fibrillation; I11.0 Hypertensive heart disease with heart failure; I50.9 Heart failure, unspecified; E78.5 Hyperlipidemia, unspecified; I10 Essential (primary) hypertension; Z95.1 Presence of aortocoronary bypass graft; F17.200 Nicotine dependence, unspecified, uncomplicated; Z91.040 Latex allergy status; Z88.0 Allergy status to penicillin; Z20.822 Contact with and (suspected) exposure to COVID-19
CPT/HCPCS: 36600; 71045; 80053; 82550; 82553; 82803; 83874; 84484; 85025; 93005; 94640; 94664; 94760; 96374; 99285; J2930; U0002

== ENCOUNTER 2021-08-17 18:15 | Observation (INO) | payer MEDICARE ==
[~2021-08-17] VITALS: Ht 170.2 cm; Wt 60.3 kg
[~2021-08-17 18:15] MED LIST changes: +NEURONTIN400 MG PO; -NEURONTIN800 MG PO
[2021-08-17 19:42] LABS: BUN/CREATININE RATIO 25 (0-10)
[2021-08-17 19:57] LABS: HEMOGLOBIN 11.9 gm/dl (14.0-17.5); RED BLOOD COUNT 4.11 M/UL (4.20-5.50); WHITE BLOOD COUNT 8.5 K/UL (4.5-11.0)
[2021-08-18] MEDS ORDERED: ELIQUIS5 MG PO (12:40)
[2021-08-19 05:52] LABS: HEMOGLOBIN 10.5 gm/dl (14.0-17.5); WHITE BLOOD COUNT 7.5 K/UL (4.5-11.0)
[2021-08-19 05:53] LABS: RED BLOOD COUNT 3.58 M/UL (4.20-5.50)
[2021-08-19 06:23] LABS: BUN/CREATININE RATIO 32 (0-10)
[2021-08-20 06:51] LABS: HEMOGLOBIN 10.5 gm/dl (14.0-17.5); RED BLOOD COUNT 3.59 M/UL (4.20-5.50); WHITE BLOOD COUNT 7.1 K/UL (4.5-11.0)
[2021-08-20 07:19] LABS: BUN/CREATININE RATIO 28 (0-10)
[2021-08-20] MEDS ORDERED: PREDNISONE10 MG PO (12:14)
[2021-08-20] MEDS ORDERED: LEVOFLOXACIN500 MG PO (12:14)
== END 2021-08-20 17:00 | disposition home or self-care (01) ==
LOC: ER1 18:15 → CDU 21:59 → M/S 08-18 16:44
PROVIDERS: Internal Medicine; Physician Assistant; ADMIT Internal Medicine
DX: R07.2 Precordial pain (principal); U07.1 COVID-19; J43.9 Emphysema, unspecified; J96.21 Acute and chronic respiratory failure with hypoxia; I48.0 Paroxysmal atrial fibrillation; I25.10 Atherosclerotic heart disease of native coronary artery without angina pectoris; E11.40 Type 2 diabetes mellitus with diabetic neuropathy, unspecified; I11.0 Hypertensive heart disease with heart failure; I50.32 Chronic diastolic (congestive) heart failure; E78.5 Hyperlipidemia, unspecified; F41.9 Anxiety disorder, unspecified; E44.0 Moderate protein-calorie malnutrition; M19.90 Unspecified osteoarthritis, unspecified site; F17.210 Nicotine dependence, cigarettes, uncomplicated; Z99.81 Dependence on supplemental oxygen; Z66 Do not resuscitate; Z95.5 Presence of coronary angioplasty implant and graft; Z88.0 Allergy status to penicillin; Z91.040 Latex allergy status; Z79.01 Long term (current) use of anticoagulants; Z79.4 Long term (current) use of insulin; Z79.82 Long term (current) use of aspirin; Z79.899 Other long term (current) drug therapy
CPT/HCPCS: 36415; 71045; 80048; 80053; 82550; 82553; 82962; 83036; 83874; 83880; 84484; 85025; 85379; 85610; 85730; 93005; 94640; 94664; 94760; G0378; J1100; J1956; J2270; J2405; U0002

== ENCOUNTER 2021-09-08 16:51 | Inpatient (IN) | payer MEDICARE ==
[~2021-09-08] VITALS: Ht 170.2 cm; Wt 59.0 kg
[2021-09-08 17:36] LABS: HEMOGLOBIN 10.9 gm/dl (14.0-17.5); RED BLOOD COUNT 3.62 M/UL (4.20-5.50); WHITE BLOOD COUNT 9.2 K/UL (4.5-11.0)
[2021-09-08 17:53] LABS: BUN/CREATININE RATIO 18 (0-10)
[2021-09-09] MEDS ORDERED: PLAVIX75 MG PO (07:55)
[2021-09-09] MEDS ORDERED: HYDROCODON-ACE1 EAC6 PO (07:56)
[2021-09-09] MEDS ORDERED: ALPRAZOLAM1 MG PO (07:56)
[2021-09-09] MEDS ORDERED: LEVOCETIRIZINE D5 MG PO (08:44)
[2021-09-09] MEDS ORDERED: DOCUSATE SODIU100 MG PO (08:45)
[2021-09-09] MEDS ORDERED: IPRAT-ALBUT 0.5-3 ML INH (08:45)
[2021-09-09] MEDS ORDERED: FUROSEMIDE20 MG PO (08:51)
[2021-09-09] MEDS ORDERED: K-DUR TAB 10 M10 MEQ PO (08:52)
[2021-09-09] MEDS ORDERED: TRESIBA FL100 UNIT/1 SQ (08:53)
[2021-09-09] MEDS ORDERED: NOVOLOG 10100 UNITS/ SQ (08:55)
[2021-09-09] MEDS ORDERED: OMEPRAZOLE20 M1 PO (11:04)
[2021-09-09] MEDS ORDERED: LOPRESSOR 25 MG25 MG PO (11:05)
[2021-09-10 03:53] LABS: HEMOGLOBIN 9.8 gm/dl (14.0-17.5); RED BLOOD COUNT 3.33 M/UL (4.20-5.50)
[2021-09-10 04:40] LABS: BUN/CREATININE RATIO 36 (0-10)
[2021-09-12 12:33] LABS: HEMOGLOBIN 11.7 gm/dl (14.0-17.5)
[2021-09-12 12:48] LABS: RED BLOOD COUNT 3.91 M/UL (4.20-5.50); WHITE BLOOD COUNT 7.8 K/UL (4.5-11.0)
[2021-09-12 13:13] LABS: BUN/CREATININE RATIO 21 (0-10)
[2021-09-12] MEDS ORDERED: BROVANA15 MCG/2 M NEB (14:30)
[2021-09-12] MEDS ORDERED: LOPRESSOR 25 MG25 MG PO (14:30)
[2021-09-12] MEDS ORDERED: AZITHROMYCIN250 MG PO (14:30)
[2021-09-12] MEDS ORDERED: PROTONIX 40 MG40 M1 PO (14:30)
[2021-09-12] MEDS ORDERED: NICOTINE PATCH1 EAC2 TOP (14:30)
[2021-09-13 02:56] LABS: HEMOGLOBIN 10.3 gm/dl (14.0-17.5); WHITE BLOOD COUNT 7.5 K/UL (4.5-11.0)
[2021-09-13 03:03] LABS: RED BLOOD COUNT 3.46 M/UL (4.20-5.50)
[2021-09-13 03:48] LABS: BUN/CREATININE RATIO 23 (0-10)
[2021-09-14 06:40] LABS: HEMOGLOBIN 9.9 gm/dl (14.0-17.5); RED BLOOD COUNT 3.33 M/UL (4.20-5.50)
[2021-09-14 06:45] LABS: WHITE BLOOD COUNT 9.4 K/UL (4.5-11.0)
[2021-09-14 07:01] LABS: BUN/CREATININE RATIO 29 (0-10)
== END 2021-09-14 19:35 | disposition home health service (06) | DRG 189 ==
LOC: ER1 16:51 → CDU 20:55 → PROG CARE 20:55
PROVIDERS: Internal Medicine; Internal Medicine Infectious Disease; Preventive Medicine Occupational Medicine; ADMIT Internal Medicine
PROC: 5A09457 Assistance with Respiratory Ventilation, 24-96 Consecutive Hours, Continuous Positive Airway Pressure (ICD-10-PCS; principal; 2021-09-08)
DX: J96.21 Acute and chronic respiratory failure with hypoxia (principal); E43 Unspecified severe protein-calorie malnutrition; J44.1 Chronic obstructive pulmonary disease with (acute) exacerbation; I50.32 Chronic diastolic (congestive) heart failure; Z66 Do not resuscitate; Z20.822 Contact with and (suspected) exposure to COVID-19; I11.0 Hypertensive heart disease with heart failure; J96.22 Acute and chronic respiratory failure with hypercapnia; F17.210 Nicotine dependence, cigarettes, uncomplicated; I25.10 Atherosclerotic heart disease of native coronary artery without angina pectoris; N40.0 Benign prostatic hyperplasia without lower urinary tract symptoms; E11.65 Type 2 diabetes mellitus with hyperglycemia; I48.0 Paroxysmal atrial fibrillation; F41.9 Anxiety disorder, unspecified; E78.5 Hyperlipidemia, unspecified; Z95.5 Presence of coronary angioplasty implant and graft; Z98.890 Other specified postprocedural states; Z82.49 Family history of ischemic heart disease and other diseases of the circulatory system; Z83.3 Family history of diabetes mellitus; Z68.20 Body mass index [BMI] 20.0-20.9, adult
CPT/HCPCS: 36415; 36600; 71045; 80053; 80307; 81001; 82140; 82550; 82553; 82803; 82962; 83605; 83690; 83874; 83880; 84484; 85025; 85652; 86140; 87086; 93005; 94640; 94660; 94760; 96374; 96375; 97161; 99285; G0378; J0696; J1650; J2405; J2920; J2930; J7030; U0002

== ENCOUNTER 2021-09-16 14:54 | Emergency (ER) | payer MEDICARE ==
[~2021-09-16 14:54] MED LIST changes: +AZITHROMYCIN250 MG PO; +BROVANA15 MCG/2 M NEB; +LEVOCETIRIZINE D5 MG PO; +NICOTINE PATCH1 EAC2 TOP; +NOVOLOG 10100 UNITS/ SQ; +PROTONIX 40 MG40 M1 PO; +TRESIBA FL100 UNIT/1 SQ
[2021-09-16 16:26] LABS: HEMOGLOBIN 10.7 gm/dl (14.0-17.5); RED BLOOD COUNT 3.56 M/UL (4.20-5.50); WHITE BLOOD COUNT 9.8 K/UL (4.5-11.0)
[2021-09-16 16:51] LABS: BUN/CREATININE RATIO 34 (0-10)
== END 2021-09-16 22:05 | disposition left against medical advice (07) ==
LOC: ER1 14:54
PROVIDERS: Student in an Organized Health Care Education/Training Program
DX: R07.89 Other chest pain (principal); J44.9 Chronic obstructive pulmonary disease, unspecified; I25.10 Atherosclerotic heart disease of native coronary artery without angina pectoris; I10 Essential (primary) hypertension; E11.9 Type 2 diabetes mellitus without complications; F17.210 Nicotine dependence, cigarettes, uncomplicated; Z79.4 Long term (current) use of insulin; Z88.0 Allergy status to penicillin
CPT/HCPCS: 71045; 80053; 82550; 82553; 83874; 84484; 85025; 93005; 99285

== ENCOUNTER 2021-09-19 17:38 | Observation (INO) | payer MEDICARE, OTHER ==
[~2021-09-19] VITALS: Ht 170.2 cm; Wt 59.0 kg
[2021-09-19 18:33] LABS: HEMOGLOBIN 11.5 gm/dl (14.0-17.5); RED BLOOD COUNT 3.87 M/UL (4.20-5.50); WHITE BLOOD COUNT 10.1 K/UL (4.5-11.0)
[2021-09-19 18:51] LABS: BUN/CREATININE RATIO 24 (0-10)
[2021-09-20] MEDS ORDERED: PROTONIX40 MG PO (18:44)
[2021-09-20] MEDS ORDERED: METOPROLOL TART25 MG PO (18:46)
[2021-09-21 06:50] LABS: WHITE BLOOD COUNT 12.6 K/UL (4.5-11.0)
[2021-09-21 06:57] LABS: HEMOGLOBIN 9.4 gm/dl (14.0-17.5); RED BLOOD COUNT 3.21 M/UL (4.20-5.50)
[2021-09-21 07:24] LABS: BUN/CREATININE RATIO 40 (0-10)
[2021-09-22 02:16] LABS: RED BLOOD COUNT 3.01 M/UL (4.20-5.50); WHITE BLOOD COUNT 12.9 K/UL (4.5-11.0)
[2021-09-22 02:42] LABS: BUN/CREATININE RATIO 22 (0-10)
[2021-09-22] MEDS ORDERED: DOXYCYCLINE HY100 M2 PO (16:23)
[2021-09-22] MEDS ORDERED: MEDROL DOSEPAK 24 MG PO (16:26)
[2021-09-22] MEDS ORDERED: XARELTO20 MG PO (16:26)
== END 2021-09-22 19:31 | disposition home or self-care (01) ==
LOC: ER1 17:38 → CDU 21:21 → MED SURG 4 21:21 → CDU 21:21 → MED SURG 4 09-20 14:16
PROVIDERS: Emergency Medicine; Internal Medicine; ADMIT Internal Medicine
DX: J96.21 Acute and chronic respiratory failure with hypoxia (principal); J96.22 Acute and chronic respiratory failure with hypercapnia; J44.9 Chronic obstructive pulmonary disease, unspecified; R07.89 Other chest pain; I25.10 Atherosclerotic heart disease of native coronary artery without angina pectoris; I11.0 Hypertensive heart disease with heart failure; I50.30 Unspecified diastolic (congestive) heart failure; E78.5 Hyperlipidemia, unspecified; E11.9 Type 2 diabetes mellitus without complications; I48.0 Paroxysmal atrial fibrillation; F41.9 Anxiety disorder, unspecified; F17.210 Nicotine dependence, cigarettes, uncomplicated; G93.40 Encephalopathy, unspecified; E43 Unspecified severe protein-calorie malnutrition; Z68.20 Body mass index [BMI] 20.0-20.9, adult; Z20.822 Contact with and (suspected) exposure to COVID-19; Z66 Do not resuscitate; Z99.81 Dependence on supplemental oxygen; Z79.01 Long term (current) use of anticoagulants; Z79.4 Long term (current) use of insulin; Z79.02 Long term (current) use of antithrombotics/antiplatelets; Z79.84 Long term (current) use of oral hypoglycemic drugs; Z79.899 Other long term (current) drug therapy; Z95.1 Presence of aortocoronary bypass graft; Z95.5 Presence of coronary angioplasty implant and graft; Z88.0 Allergy status to penicillin; Z88.8 Allergy status to other drugs, medicaments and biological substances; Z91.048 Other nonmedicinal substance allergy status
CPT/HCPCS: 36415; 36600; 70450; 71045; 80048; 80053; 81001; 82140; 82550; 82553; 82803; 82962; 83874; 84484; 85025; 85027; 93005; 94640; 94660; 94664; 94760; 96374; 99285; G0378; J1650; J2920; J2930; U0002

== ENCOUNTER 2021-10-02 15:16 | Observation (INO) | payer MEDICARE, OTHER ==
[~2021-10-02] VITALS: Ht 167.6 cm; Wt 56.9 kg
[~2021-10-02 15:16] MED LIST changes: +METOPROLOL TART25 MG PO; +PROTONIX40 MG PO
[2021-10-02 15:45] LABS: HEMOGLOBIN 11.6 gm/dl (14.0-17.5); RED BLOOD COUNT 3.73 M/UL (4.20-5.50); WHITE BLOOD COUNT 10.6 K/UL (4.5-11.0)
[2021-10-02 16:05] LABS: BUN/CREATININE RATIO 23 (0-10)
[2021-10-03] MEDS ORDERED: CETIRIZINE HCL5 MG PO (02:40)
[2021-10-04] MEDS ORDERED: MEDROL4 MG PO (10:55)
[2021-10-04] MEDS ORDERED: ZITHROMAX250 MG PO (10:55)
[2021-10-04] MEDS ORDERED: [UNRECOGNIZED DRUG - OTHER] (10:55)
[2021-10-06 15:14] LABS: ORGANISM ID Not indicated. (.); SPECIMEN SOURCE Urine (.); STREPTOCOCCUS PNEUMONIAE AG Negative (Negative)
== END 2021-10-04 13:11 | disposition home or self-care (01) ==
LOC: ER1 15:16 → MED SURG 4 18:53 → CDU 18:53 → MED SURG 4 19:58
PROVIDERS: Emergency Medicine; Internal Medicine; ADMIT Internal Medicine
DX: J44.0 Chronic obstructive pulmonary disease with (acute) lower respiratory infection (principal); J44.1 Chronic obstructive pulmonary disease with (acute) exacerbation; J96.22 Acute and chronic respiratory failure with hypercapnia; J96.21 Acute and chronic respiratory failure with hypoxia; I25.10 Atherosclerotic heart disease of native coronary artery without angina pectoris; Z95.1 Presence of aortocoronary bypass graft; I48.0 Paroxysmal atrial fibrillation; Z79.01 Long term (current) use of anticoagulants; I10 Essential (primary) hypertension; E78.5 Hyperlipidemia, unspecified; E11.9 Type 2 diabetes mellitus without complications; Z79.84 Long term (current) use of oral hypoglycemic drugs; Z99.11 Dependence on respirator [ventilator] status; Z91.19 Patient's noncompliance with other medical treatment and regimen; Z79.891 Long term (current) use of opiate analgesic; Z79.4 Long term (current) use of insulin; Z20.822 Contact with and (suspected) exposure to COVID-19
CPT/HCPCS: 36415; 71045; 80048; 82550; 82553; 82962; 83874; 84484; 85025; 86140; 87040; 87070; 87205; 87278; 87899; 93005; 94640; 94660; 94760; 96374; 96376; 99285; G0378; J2920; J2930; U0002

== ENCOUNTER 2021-12-23 18:27 | Inpatient (IN) | payer MEDICARE ==
[~2021-12-23] VITALS: Ht 170.2 cm; Wt 57.2 kg
[~2021-12-23 18:27] MED LIST changes: +CETIRIZINE HCL5 MG PO; +IPRAT-ALBUT 0.5-3 ML NEB; +IRON PO; +KLONOPIN1 MG PO; +METFORMIN HCL1000 MG PO; -TRESIBA FL100 UNIT/1 SQ; +TYLENOL325 M1 PO; +VISTARIL25 MG PO; +VITAMIN D325 MCG PO; +ZITHROMAX250 MG PO; +[UNRECOGNIZED DRUG - OTHER]
[2021-12-23 20:02] LABS: BUN/CREATININE RATIO 28 (0-10)
[2021-12-23 20:20] LABS: HEMOGLOBIN 11.3 gm/dl (14.0-17.5); RED BLOOD COUNT 3.71 M/UL (4.20-5.50); WHITE BLOOD COUNT 12.2 K/UL (4.5-11.0)
[2021-12-24 04:23] LABS: HEMOGLOBIN 11.2 gm/dl (14.0-17.5); RED BLOOD COUNT 3.72 M/UL (4.20-5.50); WHITE BLOOD COUNT 14.7 K/UL (4.5-11.0)
[2021-12-24 04:40] LABS: BUN/CREATININE RATIO 29 (0-10)
[2021-12-24] MEDS ORDERED: TRESIBA FL100 UNIT/1 SQ (08:53)
[2021-12-24] MEDS ORDERED: CLONAZEPAM1 MG PO (14:12)
[2021-12-24] MEDS ORDERED: ALPRAZOLAM1 MG PO (14:12)
[2021-12-24] MEDS ORDERED: ZOLPIDEM TARTRA10 MG PO (14:12)
[2021-12-24] MEDS ORDERED: HYDROCODON-ACE1 EAC6 PO (14:13)
[2021-12-24] MEDS ORDERED: GABAPENTIN400 MG PO (14:13)
[2021-12-24] MEDS ORDERED: OMEPRAZOLE20 M1 PO (14:14)
[2021-12-24] MEDS ORDERED: XARELTO20 MG PO (14:15)
[2021-12-24] MEDS ORDERED: NOVOLOG FL100 UNIT/1 INJ (14:19)
[2021-12-24] MEDS ORDERED: ALBUTEROL2.5 MG/3 M NEB (16:21)
[2021-12-25 04:40] LABS: HEMOGLOBIN 11.4 gm/dl (14.0-17.5); RED BLOOD COUNT 3.74 M/UL (4.20-5.50)
[2021-12-25 05:04] LABS: BUN/CREATININE RATIO 28 (0-10)
[2021-12-25 05:06] LABS: WHITE BLOOD COUNT 30.2 K/UL (4.5-11.0)
[2021-12-26 05:56] LABS: HEMOGLOBIN 10.2 gm/dl (14.0-17.5); RED BLOOD COUNT 3.38 M/UL (4.20-5.50)
[2021-12-26 05:57] LABS: WHITE BLOOD COUNT 13.5 K/UL (4.5-11.0)
[2021-12-26 06:14] LABS: BUN/CREATININE RATIO 37 (0-10)
[2021-12-26] MEDS ORDERED: SYMBICORT 16010.2 GM INH (11:41)
[2021-12-26] MEDS ORDERED: SPIRIVA RESPIMAT4 GM INH (11:43)
== END 2021-12-26 14:54 | disposition home or self-care (01) | DRG 191 ==
LOC: ER1 18:27 → MED SURG 4 21:57 → CDU 21:57 → MED SURG 4 12-24 15:32
PROVIDERS: Emergency Medicine; Internal Medicine; ADMIT Internal Medicine
DX: J44.1 Chronic obstructive pulmonary disease with (acute) exacerbation (principal); E87.2 Acidosis; I50.32 Chronic diastolic (congestive) heart failure; Z20.822 Contact with and (suspected) exposure to COVID-19; J96.11 Chronic respiratory failure with hypoxia; E44.0 Moderate protein-calorie malnutrition; J96.12 Chronic respiratory failure with hypercapnia; Z68.1 Body mass index [BMI] 19.9 or less, adult; Z66 Do not resuscitate; I11.0 Hypertensive heart disease with heart failure; E78.5 Hyperlipidemia, unspecified; E11.9 Type 2 diabetes mellitus without complications; F41.9 Anxiety disorder, unspecified; M19.90 Unspecified osteoarthritis, unspecified site; F17.210 Nicotine dependence, cigarettes, uncomplicated; F32.A Depression, unspecified; G89.4 Chronic pain syndrome; Z96.642 Presence of left artificial hip joint; G47.00 Insomnia, unspecified; I48.0 Paroxysmal atrial fibrillation; I25.10 Atherosclerotic heart disease of native coronary artery without angina pectoris; Z99.81 Dependence on supplemental oxygen; Z95.1 Presence of aortocoronary bypass graft; Z95.5 Presence of coronary angioplasty implant and graft; Z79.01 Long term (current) use of anticoagulants; Z79.4 Long term (current) use of insulin; Z91.14 Patient's other noncompliance with medication regimen; Z88.0 Allergy status to penicillin; Z88.8 Allergy status to other drugs, medicaments and biological substances; Z91.040 Latex allergy status; Z98.890 Other specified postprocedural states; Z83.3 Family history of diabetes mellitus; Z82.49 Family history of ischemic heart disease and other diseases of the circulatory system; Z87.828 Personal history of other (healed) physical injury and trauma
CPT/HCPCS: 0240U; 36415; 71045; 80048; 80053; 82803; 82962; 83605; 83735; 84100; 85025; 86140; 87040; 94640; 94664; 94760; 96374; 96375; 99285; J1100; J1650; J2920; J7070; Q0177

== ENCOUNTER 2022-03-07 13:26 | Observation (INO) | payer MEDICARE ==
[~2022-03-07] VITALS: Ht 170.2 cm; Wt 59.0 kg
[~2022-03-07 13:26] MED LIST changes: +ALBUTEROL2.5 MG/3 M NEB; +CLONAZEPAM1 MG PO; +GABAPENTIN400 MG PO; +LEVOFLOXACIN750 MG PO; +PROAIR HFA8.5 GM INH
[2022-03-07 14:36] LABS: HEMOGLOBIN 10.4 gm/dl (14.0-17.5); RED BLOOD COUNT 3.2 M/UL (4.20-5.50); WHITE BLOOD COUNT 7.1 K/UL (4.5-11.0)
[2022-03-07 14:53] LABS: BUN/CREATININE RATIO 37 (0-10)
[2022-03-08 01:08] LABS: HEMOGLOBIN 11.7 gm/dl (14.0-17.5)
[2022-03-08 01:16] LABS: RED BLOOD COUNT 3.67 M/UL (4.20-5.50); WHITE BLOOD COUNT 11.9 K/UL (4.5-11.0)
[2022-03-08 01:43] LABS: BUN/CREATININE RATIO 30 (0-10)
[2022-03-08] MEDS ORDERED: TRESIBA FL100 UNIT/1 SQ (08:53)
[2022-03-08] MEDS ORDERED: NOVOLOG FL100 UNIT/1 SQ (14:19)
[2022-03-08] MEDS ORDERED: TRESIBA FLEXTOUCH SQ (17:36)
[2022-03-08] MEDS ORDERED: MEGACE 400400 MG/10 PO (17:43)
[2022-03-09 06:27] LABS: HEMOGLOBIN 10.2 gm/dl (14.0-17.5); WHITE BLOOD COUNT 10.4 K/UL (4.5-11.0)
[2022-03-09 06:30] LABS: RED BLOOD COUNT 3.18 M/UL (4.20-5.50)
[2022-03-09 06:56] LABS: BUN/CREATININE RATIO 37 (0-10)
[2022-03-09] MEDS ORDERED: LEVOFLOXACIN750 MG PO (15:56)
[2022-03-10 06:14] LABS: RED BLOOD COUNT 3.48 M/UL (4.20-5.50)
[2022-03-10 06:40] LABS: BUN/CREATININE RATIO 29 (0-10)
[2022-03-10] MEDS ORDERED: DOXYCYCLINE HY100 M2 PO (12:42)
[2022-03-10] MEDS ORDERED: XARELTO20 MG PO (12:42)
[2022-03-10] MEDS ORDERED: NOVOLOG FL100 UNIT/1 SQ (12:46)
== END 2022-03-10 14:40 | disposition home or self-care (01) ==
LOC: ER1 13:26 → CDU 18:11 → MED SURG 4 19:54
PROVIDERS: Preventive Medicine Occupational Medicine; ADMIT Internal Medicine
DX: J43.9 Emphysema, unspecified (principal); J96.11 Chronic respiratory failure with hypoxia; J96.12 Chronic respiratory failure with hypercapnia; R07.89 Other chest pain; I25.10 Atherosclerotic heart disease of native coronary artery without angina pectoris; I48.0 Paroxysmal atrial fibrillation; I11.0 Hypertensive heart disease with heart failure; I50.32 Chronic diastolic (congestive) heart failure; E87.2 Acidosis; E87.6 Hypokalemia; R91.1 Solitary pulmonary nodule; E78.5 Hyperlipidemia, unspecified; F17.210 Nicotine dependence, cigarettes, uncomplicated; F11.20 Opioid dependence, uncomplicated; F41.9 Anxiety disorder, unspecified; E11.65 Type 2 diabetes mellitus with hyperglycemia; E11.40 Type 2 diabetes mellitus with diabetic neuropathy, unspecified; M19.90 Unspecified osteoarthritis, unspecified site; G89.29 Other chronic pain; Z20.822 Contact with and (suspected) exposure to COVID-19; Z95.1 Presence of aortocoronary bypass graft; Z91.14 Patient's other noncompliance with medication regimen; Z91.19 Patient's noncompliance with other medical treatment and regimen; Z95.5 Presence of coronary angioplasty implant and graft; Z88.0 Allergy status to penicillin; Z88.8 Allergy status to other drugs, medicaments and biological substances; Z91.040 Latex allergy status; Z66 Do not resuscitate; Z79.02 Long term (current) use of antithrombotics/antiplatelets; Z79.4 Long term (current) use of insulin; Z79.84 Long term (current) use of oral hypoglycemic drugs; Z79.01 Long term (current) use of anticoagulants; Z79.899 Other long term (current) drug therapy
CPT/HCPCS: 0240U; 36415; 36600; 71045; 71046; 71250; 80053; 81001; 82550; 82553; 82803; 82962; 83605; 83880; 84484; 85025; 85027; 85379; 85652; 86140; 87040; 93005; 94640; 94760; 96374; 96375; 97116; 97161; 97165; 99285; G0378; J1956; J2920; J2930; J7030; Q9967

== ENCOUNTER 2022-03-11 17:23 | Emergency (ER) | payer MEDICARE ==
[~2022-03-11 17:23] MED LIST changes: +MEGACE 400400 MG/10 PO; +NOVOLOG FL100 UNIT/1 SQ; +TRESIBA FL100 UNIT/1 SQ; +TRESIBA FLEXTOUCH SQ
[2022-03-11 18:33] LABS: HEMOGLOBIN 11.3 gm/dl (14.0-17.5); RED BLOOD COUNT 3.46 M/UL (4.20-5.50)
[2022-03-11 18:56] LABS: BUN/CREATININE RATIO 38 (0-10)
== END 2022-03-11 22:40 | disposition home or self-care (01) ==
LOC: ER1 17:23
PROVIDERS: Emergency Medicine
DX: J44.9 Chronic obstructive pulmonary disease, unspecified (principal); Z20.822 Contact with and (suspected) exposure to COVID-19; E11.9 Type 2 diabetes mellitus without complications; E78.5 Hyperlipidemia, unspecified; I10 Essential (primary) hypertension; I48.91 Unspecified atrial fibrillation; F17.200 Nicotine dependence, unspecified, uncomplicated; Z95.1 Presence of aortocoronary bypass graft
CPT/HCPCS: 0240U; 36600; 71045; 80053; 81001; 82550; 82553; 82803; 83605; 83880; 84484; 85025; 87040; 93005; 94640; 94664; 94760; 96374; 96375; 99285; J0696; J2930

== ENCOUNTER 2022-04-06 18:02 | Observation (INO) | payer MEDICARE ==
[~2022-04-06] VITALS: Ht 170.2 cm; Wt 59.0 kg
[~2022-04-06 18:02] MED LIST changes: -GABAPENTIN400 MG PO; +GABAPENTIN600 MG PO; +POTASSIUM CHLO10 ME1 PO
[2022-04-06 19:59] LABS: HEMOGLOBIN 11.5 gm/dl (14.0-17.5); RED BLOOD COUNT 3.58 M/UL (4.20-5.50); WHITE BLOOD COUNT 7.3 K/UL (4.5-11.0)
[2022-04-06 20:06] LABS: BUN/CREATININE RATIO 43 (0-10)
[2022-04-07 04:34] LABS: HEMOGLOBIN 11.3 gm/dl (14.0-17.5); RED BLOOD COUNT 3.42 M/UL (4.20-5.50); WHITE BLOOD COUNT 8.8 K/UL (4.5-11.0)
[2022-04-07 04:46] LABS: BUN/CREATININE RATIO 38 (0-10)
[2022-04-07] MEDS ORDERED: NOVOLOG FL100 UNIT/1 SQ (13:45)
[2022-04-07] MEDS ORDERED: XARELTO20 MG PO (13:48)
[2022-04-07] MEDS ORDERED: CRESTOR 10 MG T10 MG PO (13:48)
[2022-04-07] MEDS ORDERED: FLOMAX 0.4 MG0.4 MG PO (13:49)
[2022-04-07] MEDS ORDERED: BUDESONIDE0.5 MG/2 M INH (13:50)
[2022-04-07] MEDS ORDERED: TRELEGY ELLIPT1 EACH INH (13:50)
[2022-04-07] MEDS ORDERED: PROAIR HFA8.5 GM INH (13:51)
[2022-04-07] MEDS ORDERED: ASPIRIN EC81 MG PO (13:51)
[2022-04-07] MEDS ORDERED: VITAMIN D325 MC6 PO (13:52)
[2022-04-07] MEDS ORDERED: ISOSORBIDE MONO30 MG PO (15:09)
[2022-04-07] MEDS ORDERED: METOPROLOL TART25 MG PO (15:09)
== END 2022-04-07 16:30 | disposition home or self-care (01) ==
LOC: ER1 18:02 → MED SURG 4 20:54 → CDU 20:54 → MED SURG 4 23:48
PROVIDERS: Emergency Medicine; ADMIT Internal Medicine
DX: R07.89 Other chest pain (principal); I25.10 Atherosclerotic heart disease of native coronary artery without angina pectoris; J44.9 Chronic obstructive pulmonary disease, unspecified; J96.21 Acute and chronic respiratory failure with hypoxia; J96.22 Acute and chronic respiratory failure with hypercapnia; I11.0 Hypertensive heart disease with heart failure; I50.32 Chronic diastolic (congestive) heart failure; I48.0 Paroxysmal atrial fibrillation; E78.5 Hyperlipidemia, unspecified; E11.9 Type 2 diabetes mellitus without complications; F32.A Depression, unspecified; F41.9 Anxiety disorder, unspecified; G47.00 Insomnia, unspecified; F17.210 Nicotine dependence, cigarettes, uncomplicated; Z20.822 Contact with and (suspected) exposure to COVID-19; Z95.1 Presence of aortocoronary bypass graft; Z95.5 Presence of coronary angioplasty implant and graft; Z88.0 Allergy status to penicillin; Z88.8 Allergy status to other drugs, medicaments and biological substances; Z91.040 Latex allergy status; Z79.01 Long term (current) use of anticoagulants; Z79.51 Long term (current) use of inhaled steroids; Z79.82 Long term (current) use of aspirin; Z79.02 Long term (current) use of antithrombotics/antiplatelets; Z79.84 Long term (current) use of oral hypoglycemic drugs; Z79.891 Long term (current) use of opiate analgesic; Z79.4 Long term (current) use of insulin; Z79.899 Other long term (current) drug therapy; Z98.890 Other specified postprocedural states
CPT/HCPCS: ECHO; 0241U; 36415; 36600; 71045; 80048; 80053; 80061; 82550; 82553; 82803; 82962; 83036; 83605; 83735; 83880; 84439; 84443; 84484; 85025; 87040; 93005; 93306; 94640; 94664; 94760; 96374; 99285; G0378; J2270

== ENCOUNTER 2022-08-13 19:13 | Inpatient (IN) | payer MEDICARE ==
[~2022-08-13] VITALS: Ht 170.2 cm; Wt 52.2 kg
[~2022-08-13 19:13] MED LIST changes: +ASPIRIN EC81 MG PO; +BUDESONIDE0.5 MG/2 M INH; +GABAPENTIN400 MG PO; -GABAPENTIN600 MG PO; +ISOSORBIDE MONO30 MG PO; +VITAMIN D325 MC6 PO
[2022-08-13 21:05] LABS: HEMOGLOBIN 12.1 gm/dl (14.0-17.5); RED BLOOD COUNT 3.71 M/UL (4.20-5.50)
[2022-08-13 21:32] LABS: BUN/CREATININE RATIO 26 (0-10)
[2022-08-14 01:42] LABS: HEMOGLOBIN 12.4 gm/dl (14.0-17.5); RED BLOOD COUNT 3.8 M/UL (4.20-5.50); WHITE BLOOD COUNT 16.8 K/UL (4.5-11.0)
[2022-08-14 02:11] LABS: BUN/CREATININE RATIO 27 (0-10)
[2022-08-14] MEDS ORDERED: POTASSIUM CHLO10 ME1 PO (11:19)
[2022-08-14] MEDS ORDERED: ZOLPIDEM TARTRA10 MG PO (11:19)
[2022-08-14] MEDS ORDERED: ASPIRIN EC81 MG PO (11:20)
[2022-08-15 07:20] LABS: RED BLOOD COUNT 3.45 M/UL (4.20-5.50)
[2022-08-15 09:29] LABS: BUN/CREATININE RATIO 42 (0-10)
[2022-08-16 08:16] LABS: HEMOGLOBIN 11.3 gm/dl (14.0-17.5); RED BLOOD COUNT 3.47 M/UL (4.20-5.50); WHITE BLOOD COUNT 13.6 K/UL (4.5-11.0)
[2022-08-16 08:42] LABS: BUN/CREATININE RATIO 40 (0-10)
[2022-08-17 04:10] LABS: HEMOGLOBIN 11.8 gm/dl (14.0-17.5); RED BLOOD COUNT 3.53 M/UL (4.20-5.50); WHITE BLOOD COUNT 13.9 K/UL (4.5-11.0)
[2022-08-17 05:01] LABS: BUN/CREATININE RATIO 46 (0-10)
[2022-08-17] MEDS ORDERED: LEVOFLOXACIN750 MG PO (12:03)
[2022-08-17] MEDS ORDERED: XARELTO 10 MG T10 MG PO (12:03)
[2022-08-17] MEDS ORDERED: PREDNISONE20 MG PO (12:03)
[2022-08-21 12:51] LABS: HEMOGLOBIN A1C 8.2 % (4.8-5.6)
== END 2022-08-17 14:18 | disposition home or self-care (01) | DRG 871 ==
LOC: ER1 19:13 → CDU 21:43 → MED SURG 4 21:43
PROVIDERS: Emergency Medicine; Internal Medicine; Physician Assistant Medical; ADMIT Internal Medicine
DX: A41.9 Sepsis, unspecified organism (principal); J18.9 Pneumonia, unspecified organism; J96.21 Acute and chronic respiratory failure with hypoxia; J44.1 Chronic obstructive pulmonary disease with (acute) exacerbation; Z20.822 Contact with and (suspected) exposure to COVID-19; Z66 Do not resuscitate; E44.0 Moderate protein-calorie malnutrition; I50.32 Chronic diastolic (congestive) heart failure; Z68.1 Body mass index [BMI] 19.9 or less, adult; J44.0 Chronic obstructive pulmonary disease with (acute) lower respiratory infection; R65.20 Severe sepsis without septic shock; Z96.642 Presence of left artificial hip joint; F41.9 Anxiety disorder, unspecified; M19.90 Unspecified osteoarthritis, unspecified site; F17.210 Nicotine dependence, cigarettes, uncomplicated; N40.0 Benign prostatic hyperplasia without lower urinary tract symptoms; E11.51 Type 2 diabetes mellitus with diabetic peripheral angiopathy without gangrene; I48.0 Paroxysmal atrial fibrillation; G47.00 Insomnia, unspecified; I25.10 Atherosclerotic heart disease of native coronary artery without angina pectoris; Z95.1 Presence of aortocoronary bypass graft; Z79.01 Long term (current) use of anticoagulants; Z79.82 Long term (current) use of aspirin; Z79.4 Long term (current) use of insulin; Z99.81 Dependence on supplemental oxygen; Z95.5 Presence of coronary angioplasty implant and graft; Z86.73 Personal history of transient ischemic attack (TIA), and cerebral infarction without residual deficits; Z88.0 Allergy status to penicillin; Z88.8 Allergy status to other drugs, medicaments and biological substances; Z88.1 Allergy status to other antibiotic agents; Z91.040 Latex allergy status; Z83.3 Family history of diabetes mellitus; Z82.49 Family history of ischemic heart disease and other diseases of the circulatory system
CPT/HCPCS: 36415; 36600; 71045; 80048; 80053; 82550; 82553; 82803; 82962; 83036; 83605; 83735; 83880; 84484; 85025; 85027; 86140; 93005; 94640; 94664; 94760; 96374; 96375; 99285; G0378; J1100; J1940; J1956; J2920; J2930; U0002